=== PATIENT | female | born 1950 | race Caucasian/White ===

== ENCOUNTER → 2023-07-30 09:41 | Outpatient (REF) | payer MEDICARE, BC, OTHER, SELFPAY | LOC: RAD 09:41 | PROVIDERS: ATTENDING PHYSICIAN Internal Medicine Rheumatology; FAMILY PHYSICIAN Internal Medicine | DX: M16.10 Unilateral primary osteoarthritis, unspecified hip (principal) | CPT/HCPCS: 73523 ==

== ENCOUNTER → 2023-10-15 15:29 | Outpatient (REF) | payer MEDICARE, BC, OTHER, SELFPAY ==
[2023-10-15 16:39] LABS: Urine Albumin Negative (Neg - Trace); Urine Bilirubin Negative (Negative); Urine Character Slightly Cloudy (Clear); Urine Color Yellow; Urine Glucose Negative (Negative); Urine Ketone Negative (Negative); Urine Leukocyte Trace (Negative); Urine Nitrite Positive (Negative); Urine Occult Blood 1+ (Negative); Urine Specific Gravity 1.015 (<1.030); Urine Urobilinogen Negative (Neg - 1+); Urine pH 6.5 (5.0-9.0)
[2023-10-15 16:49] LABS: Urine Squamous Cell 26-30 /LPF (Few)
[2023-10-15 16:50] LABS: Urine Bacteria Many (Negative)
== END ==
LOC: CLAB 15:29
PROVIDERS: ATTENDING PHYSICIAN Obstetrics & Gynecology
DX: N39.0 Urinary tract infection, site not specified (principal)
CPT/HCPCS: 81003; 81015; 87077; 87086

== ENCOUNTER → 2023-10-19 15:30 | Outpatient (REF) | payer MEDICARE, BC, OTHER, SELFPAY | LOC: HWWDC 15:30 | PROVIDERS: ATTENDING PHYSICIAN Obstetrics & Gynecology; FAMILY PHYSICIAN Internal Medicine | DX: Z12.31 Encounter for screening mammogram for malignant neoplasm of breast (principal) | CPT/HCPCS: 77063; 77067 ==

== ENCOUNTER → 2023-11-08 10:11 | Outpatient (REF) | payer MEDICARE, BC, OTHER, SELFPAY | LOC: RAD 10:11 | PROVIDERS: ATTENDING PHYSICIAN Obstetrics & Gynecology; FAMILY PHYSICIAN Internal Medicine | DX: Z78.0 Asymptomatic menopausal state (principal) | CPT/HCPCS: 77080 ==

== ENCOUNTER → 2023-11-30 07:52 | Outpatient (REF) | payer MEDICARE, BC, OTHER, SELFPAY | LOC: RAD 07:52 | PROVIDERS: FAMILY PHYSICIAN Internal Medicine | DX: M25.50 Pain in unspecified joint (principal); M19.90 Unspecified osteoarthritis, unspecified site | CPT/HCPCS: 73130; 73630 ==

== ENCOUNTER → 2023-12-13 07:35 | Outpatient (REF) | payer MEDICARE, BC, OTHER, SELFPAY ==
[2023-12-13 08:56] LABS: Hematocrit 39.2 % (37.0-47.0); Hemoglobin 13.5 g/dL (12.0-16.0); Mean Corp Hgb Conc. 34.4 g/dL (33.0-37.0); Mean Corpuscular Hgb 31.3 pg (27.0-31.0); Mean Platelet Volume 10.3 fL (7.4-10.4); Platelet Count 305 10^3/uL (130-400); Red Blood Cell Count 4.31 10^6/uL (4.20-5.40); Red Cell Dist. Width 13.2 % (11.5-14.5); White Blood Cell Count 6.2 10^3/uL (4.8-10.8)
[2023-12-13 09:28] LABS: ALT (SGPT) 28 U/L (0-35); AST (SGOT) 27 U/L (14-36); Albumin 4.1 g/dl (3.5-5.0); Alkaline Phosphatase 83 U/L (38-126); Direct Bilirubin 0.1 mg/dl (0.0-0.4); Iron 118 ug/dl (37-170); Total Bilirubin 0.7 mg/dl (0.2-1.3); Total Protein 6.8 g/dl (6.3-8.2)
[2023-12-13 09:39] LABS: Percent Saturation 30 % (20-50); Total Iron Binding Capacity 386 ug/dl (265-497)
[2023-12-13 10:04] LABS: Ferritin 30.6 ng/ml (11.1-264.0)
[2023-12-13 11:17] LABS: IgA 285 mg/dl (70-400)
[2023-12-15 07:23] LABS: Endomysial IgA Antibody Titer <1:10 (<1:10)
[2023-12-15 16:09] LABS: tTG IgA Antibody 7.1 EU/ml (0-19); tTG IgG Antibody 20.8 EU/ml (0-19)
== END ==
LOC: REG 07:35
PROVIDERS: ATTENDING PHYSICIAN Nurse Practitioner Family; FAMILY PHYSICIAN Internal Medicine
DX: K90.41 Non-celiac gluten sensitivity (principal); K25.0 Acute gastric ulcer with hemorrhage; K76.0 Fatty (change of) liver, not elsewhere classified; E11.9 Type 2 diabetes mellitus without complications
CPT/HCPCS: 36415; 80076; 82728; 82784; 83516; 83540; 83550; 85027; 86231

== ENCOUNTER → 2023-12-17 13:04 | Outpatient (REF) | payer MEDICARE, BC, OTHER, SELFPAY | LOC: WDC 13:04 | PROVIDERS: ATTENDING PHYSICIAN Obstetrics & Gynecology; FAMILY PHYSICIAN Internal Medicine | DX: R92.2 Inconclusive mammogram (principal) | CPT/HCPCS: 76641 ==

== ENCOUNTER → 2023-12-30 11:18 | Outpatient (REF) | payer MEDICARE, BC, OTHER, SELFPAY | LOC: REG 11:18 | PROVIDERS: ATTENDING PHYSICIAN Nurse Practitioner Family; FAMILY PHYSICIAN Internal Medicine | DX: R89.9 Unspecified abnormal finding in specimens from other organs, systems and tissues (principal) | CPT/HCPCS: 36415 ==

== ENCOUNTER → 2024-03-08 08:02 | Outpatient (REF) | payer MEDICARE, BC, OTHER, SELFPAY ==
[2024-03-08 09:09] LABS: % Basophils 0.5 % (0-2); % Eosinophils 1.4 % (0-6); % Immature Granulocytes 0.2 % (0-0.5); % Lymphocytes 47.2 % (20.5-51.1); % Monocytes 10.9 % (1.7-9.3); % Neutrophils 39.8 % (42.2-75.2); Absolute Eosinophils 0.1 10^3/uL (0-0.7); Absolute Monocytes 0.7 10^3/uL (0.1-0.6); Absolute Neutrophils 2.5 10^3/uL (1.4-6.5); Hematocrit 39.9 % (37.0-47.0); Hemoglobin 14.1 g/dL (12.0-16.0); Mean Corp Hgb Conc. 35.3 g/dL (33.0-37.0); Mean Corpuscular Hgb 32.2 pg (27.0-31.0); Mean Corpuscular Volume 91.1 fL (81.0-99.0); Mean Platelet Volume 10.4 fL (7.4-10.4); Nucleated Red Blood Cells % 0 %; Platelet Count 309 10^3/uL (130-400); Red Blood Cell Count 4.38 10^6/uL (4.20-5.40); Red Cell Dist. Width 12.9 % (11.5-14.5); White Blood Cell Count 6.3 10^3/uL (4.8-10.8)
[2024-03-08 12:18] LABS: Blood Urea Nitrogen 21 mg/dl (7-17); Calcium 8.9 mg/dl (8.4-10.2); Carbon Dioxide 26 mmol/L (22-30); Chloride 104 mmol/L (98-107); Glucose 100 mg/dl (70-99); Potassium 4.6 mmol/L (3.5-5.1); Sodium 142 mmol/L (135-145); eGFR > 60.00
== END ==
LOC: SDSPAT 08:02
PROVIDERS: ATTENDING PHYSICIAN Obstetrics & Gynecology; FAMILY PHYSICIAN Internal Medicine; OTHER PHYSICIAN Surgery; REFERRING PHYSICIAN Obstetrics & Gynecology
DX: Z01.818 Encounter for other preprocedural examination (principal)
CPT/HCPCS: 36415; 80048; 85025; 86850; 86900; 86901; 93005

== ENCOUNTER 2024-03-28 06:25 | Day surgery (SDC) | payer MEDICARE, BC, OTHER, SELFPAY ==
[2024-03-08 08:24] VITALS: BMI 31.9
[2024-03-28] VITALS (13 sets, daily range): BP systolic 109–122; BP diastolic 62–75; BMI 31.9
[2024-03-28 06:55] LABS: Glucose - Point of Care 108 mg/dl (70-99)
[2024-03-28] MEDS: Pyridium 200 MG PO (06:57)
[2024-03-28] MEDS: TYLENOL 1000 MG PO (06:57)
[2024-03-28] MEDS: NEURONTIN 300 MG PO (06:58)
[2024-03-28] MEDS: HEPARIN 5000 UNITS SC (06:58)
[2024-03-28] MEDS: VANCOCIN 300 MG IV (06:59)
[2024-03-28] MEDS: VANCOCIN 300 ML IV (06:59)
--- NOTE | 2024-03-28 07:14 | W.SUR.PREOP ---
Pre-Operative Surgical Note
-
I have examined this patient prior to the performance of the scheduled procedure.
The patient's condition is unchanged from the time of the current History and
Physical and the patient is able to undergo the scheduled procedure.
--- NOTE | 2024-03-28 10:16 | W.IMMPOSTOP ---
Addendum entered and electronically signed by Michelle Inman DO 03/28/24 11:41:
Findings: thin filmy adhesions noted between sigmoid mesentary to left round ligament and also to peritoneum in cul de sac-these were lysed.
Small umbilical hernia
Original Note:
Surgical Immed Post Op Note
-
Primary Surgeon: Michelle Inman DO
Equal Opportunity Director: BLU Orozco
Pre-op Diagnosis: Pelvic organ prolapse
Post-op Diagnosis:same
Procedure Performed: Robotic total laparoscopic hysterectomy bilateral salpingo-oopherectomy, lysis adhesions
Anesthesia Type: general ET Dr. Seo
Specimen / Cultures: 1. uterus, cervix, bilateral fallopian tubes and ovaries
Estimated Blood Loss: 10ml
Complications: none
Operative Findings: Uterus sounded to 7 cm, anterior lower uterine body degenerated fibroid, normal appearing tubes and atrophic ovaries.
Counts correct times 2.
Haley clear urine
Stable to recovery after completion of Dr. Nunez's portion of case.
--- NOTE | 2024-03-28 11:15 | W.IMMPOSTOP ---
Addendum entered and electronically signed by Marcel Cox MD 04/11/24 07:53:
#[id number]
Original Note:
Surgical Immed Post Op Note
-
Primary Surgeon: Brooke
Assisting Surgeon: None
Pre-op Diagnosis: UH
Post-op Diagnosis: UH; 1.2cm
Procedure Performed: Open Primary Umbilical Hernia Repair
Anesthesia Type: GETA
Specimen / Cultures: None for this portion of the case
Estimated Blood Loss: 4 mL
Complications: None immediate
Operative Findings: Reducible umbilical hernia containing preperitoneal fat and peritoneal lining. Fascial defect 1.2 cm after clearing edges. UH site utilized for 12 mm trocar site for robotic procedure. 3 interrupted [id number] 0 PDS
sutures in a buried fashion placed for closure of the umbilical hernia defect following RAL PINEDA.
[2024-03-28] MEDS: DILAUDID 0.25 MG IV ×2 (12:35→12:49)
[2024-03-28] MEDS: DILAUDID 0.5 MG IV (12:59)
[2024-03-28] MEDS: ZOFRAN 4 MG IV (13:08)
[2024-03-28] MEDS: ULTRAM 25 MG PO (14:59)
== END 2024-03-28 16:26 | disposition home or self-care (01) ==
LOC: SDS 06:25
PROVIDERS: ATTENDING PHYSICIAN Obstetrics & Gynecology; FAMILY PHYSICIAN Internal Medicine
DX: N81.3 Complete uterovaginal prolapse (principal); N84.0 Polyp of corpus uteri; D25.1 Intramural leiomyoma of uterus; D25.2 Subserosal leiomyoma of uterus; N83.8 Other noninflammatory disorders of ovary, fallopian tube and broad ligament; N73.6 Female pelvic peritoneal adhesions (postinfective); K42.9 Umbilical hernia without obstruction or gangrene
CPT/HCPCS: 57425; 58571; 57260; 49591; 88305; 82962; 88341; 88342

== ENCOUNTER → 2024-04-21 10:02 | Outpatient (REF) | payer MEDICARE, BC, OTHER, SELFPAY ==
[2024-04-21 11:37] LABS: ALT (SGPT) 33 U/L (0-35); AST (SGOT) 28 U/L (14-36); Albumin 4.3 g/dl (3.5-5.0); Alkaline Phosphatase 86 U/L (38-126); Blood Urea Nitrogen 18 mg/dl (7-17); Calcium 9.2 mg/dl (8.4-10.2); Carbon Dioxide 27 mmol/L (22-30); Chloride 103 mmol/L (98-107); Glucose 102 mg/dl (70-99); HDL Cholesterol 58 mg/dl; LDL Cholesterol, Calculated 111 mg/dl; Potassium 4.4 mmol/L (3.5-5.1); Sodium 142 mmol/L (135-145); Total Bilirubin 0.7 mg/dl (0.2-1.3); Total Cholesterol 200 mg/dl (50-199); Total Protein 7.1 g/dl (6.3-8.2); Triglyceride 158 mg/dl (10-149); Very Low Density Lipoprotein 31 mg/dl (0-30); eGFR > 60.00
[2024-04-21 11:42] LABS: % Basophils 0.6 % (0-2); % Eosinophils 6.9 % (0-6); % Immature Granulocytes 0.2 % (0-0.5); % Lymphocytes 39.1 % (20.5-51.1); % Monocytes 11.3 % (1.7-9.3); % Neutrophils 41.9 % (42.2-75.2); Absolute Eosinophils 0.4 10^3/uL (0-0.7); Absolute Lymphocytes 2.4 10^3/uL (1.2-3.4); Absolute Monocytes 0.7 10^3/uL (0.1-0.6); Absolute Neutrophils 2.6 10^3/uL (1.4-6.5); Hematocrit 40.5 % (37.0-47.0); Hemoglobin 13.9 g/dL (12.0-16.0); Mean Corp Hgb Conc. 34.3 g/dL (33.0-37.0); Mean Corpuscular Hgb 31.5 pg (27.0-31.0); Mean Corpuscular Volume 91.8 fL (81.0-99.0); Mean Platelet Volume 10.8 fL (7.4-10.4); Nucleated Red Blood Cells % 0 %; Platelet Count 327 10^3/uL (130-400); Red Blood Cell Count 4.41 10^6/uL (4.20-5.40); Red Cell Dist. Width 12.8 % (11.5-14.5); White Blood Cell Count 6.2 10^3/uL (4.8-10.8)
[2024-04-21 12:06] LABS: TSH Reflex To Free T4 1.09 uIU/ml (0.47-4.68)
[2024-04-21 12:49] LABS: Glycohemoglobin (HgbA1c) 5.8 % (4.0-5.6)
== END ==
LOC: REG 10:02
PROVIDERS: ATTENDING PHYSICIAN Internal Medicine
DX: R73.09 Other abnormal glucose (principal); I10 Essential (primary) hypertension; E78.49 Other hyperlipidemia
CPT/HCPCS: 36415; 80053; 80061; 83036; 84443; 85025

== ENCOUNTER → 2024-05-30 11:02 | Outpatient (REF) | payer MEDICARE, BC, OTHER, SELFPAY | LOC: REG 11:02 | PROVIDERS: ATTENDING PHYSICIAN Obstetrics & Gynecology; FAMILY PHYSICIAN Internal Medicine | DX: N39.0 Urinary tract infection, site not specified (principal) | CPT/HCPCS: 87086 ==

== ENCOUNTER → 2024-12-13 10:01 | Outpatient (REF) | payer MEDICARE, BC, OTHER, SELFPAY ==
[2024-12-13 10:50] LABS: Urine Character Slightly Cloudy (Clear)
[2024-12-13 12:28] LABS: Urine Squamous Cell >30 /LPF (Few)
[2024-12-13 12:33] LABS: Urine White Cell 40-50 /HPF (0-5)
== END ==
LOC: REG 10:01
PROVIDERS: ATTENDING PHYSICIAN Obstetrics & Gynecology; FAMILY PHYSICIAN Internal Medicine
DX: N39.0 Urinary tract infection, site not specified (principal)
CPT/HCPCS: 81003; 81015; 87086

== ENCOUNTER → 2025-01-23 13:14 | Outpatient (REF) | payer MEDICARE, BC, OTHER, SELFPAY | LOC: WDC 13:14 | PROVIDERS: ATTENDING PHYSICIAN Obstetrics & Gynecology; FAMILY PHYSICIAN Internal Medicine | DX: Z12.31 Encounter for screening mammogram for malignant neoplasm of breast (principal) | CPT/HCPCS: 77063; 77067 ==

== ENCOUNTER → 2025-04-07 09:47 | Outpatient (REF) | payer MEDICARE, BC, OTHER, SELFPAY ==
[2025-04-07 10:49] LABS: Hematocrit 42.8 % (37.0-47.0); Hemoglobin 14.2 g/dL (12.0-16.0); Mean Corp Hgb Conc. 33.2 g/dL (33.0-37.0); Mean Corpuscular Volume 94.1 fL (81.0-99.0); Nucleated Red Blood Cells % 0 %; Platelet Count 295 10^3/uL (130-400); Red Cell Dist. Width 12.8 % (11.5-14.5)
[2025-04-07 11:13] LABS: ALT (SGPT) 34 U/L (0-35); AST (SGOT) 24 U/L (14-36); Albumin 4.3 g/dl (3.5-5.0); Alkaline Phosphatase 81 U/L (38-126); Blood Urea Nitrogen 18 mg/dl (7-17); Calcium 9.4 mg/dl (8.4-10.2); Carbon Dioxide 30 mmol/L (22-30); Chloride 104 mmol/L (98-107); Glucose 118 mg/dl (70-99); HDL Cholesterol 47 mg/dl; LDL Cholesterol, Calculated 100 mg/dl; Sodium 139 mmol/L (135-145); Total Protein 7.5 g/dl (6.3-8.2); Very Low Density Lipoprotein 20 mg/dl (0-30); eGFR > 60.00
[2025-04-07 11:18] LABS: Potassium 4.6 mmol/L (3.5-5.1)
== END ==
LOC: REG 09:47
PROVIDERS: ATTENDING PHYSICIAN Internal Medicine
DX: E78.49 Other hyperlipidemia (principal); I10 Essential (primary) hypertension
CPT/HCPCS: 36415; 80053; 80061; 84443; 85025